=== PATIENT | female | born 1980 | race Caucasian/White ===

== ENCOUNTER 2019-08-01 19:56 | Observation (INO) | payer MEDICAID ==
[~2019-08-01] VITALS: Ht 162.6 cm; Wt 81.2 kg
[2019-08-01] MEDS ORDERED: PREN1TAB78 MT (20:24)
[2019-08-01] MEDS ORDERED: FOLI-43 MT (20:24)
[2019-08-01] MEDS ORDERED: FERR-71 MT (20:24)
== END 2019-08-01 22:45 | disposition home or self-care (01) ==
LOC: 8 EST LDRP 19:56
PROVIDERS: ADMIT Specialist; ATTEND Specialist
DX: O26.893 Other specified pregnancy related conditions, third trimester (principal); R10.9 Unspecified abdominal pain; Z3A.40 40 weeks gestation of pregnancy
CPT/HCPCS: 99281; G0378